=== PATIENT | female | born 1970 | race Caucasian/White ===

== ENCOUNTER 2019-03-05 11:35 | Inpatient (IN) | payer MEDICARE, OTHER ==
[~2019-03-05] VITALS: Ht 157.5 cm; Wt 73.5 kg
--- NOTE | 2019-03-05 12:09 | NUR ---
ED Nurse Note: md mckinnon pt.
[2019-03-05] MEDS ORDERED: Betadine 4oz Bottle TOPIC ONE (12:36)
--- NOTE | 2019-03-05 12:57 | NUR ---
ED Nurse Note: Pt brought in by partner, pt using walker. Pt VSS. Pt is alert and oriented, states allergies to NS, and chloraprep. Pt is set up on monitor.
[2019-03-05 13:01] VITALS: BP 122/81
--- NOTE | 2019-03-05 13:54 | Diagnostic Imaging Report ---
Indication: Dyspnea Comparison: None A single view chest radiograph was obtained. Findings: Cardiomediastinal appearance is within normal limits for age. There is a right chest port in good position with the tip projected over the SVC. The lungs are clear. Pulmonary vascularity is appropriate. The diaphragmatic contour is smooth and costophrenic angles are sharp. No pleural effusions are identified. The bones are unremarkable. Impression: No acute findings
--- NOTE | 2019-03-05 13:55 | NUR ---
ED Nurse Note: lab called spoke with Vanessa, coming for labdraw.
[2019-03-05] MEDS ORDERED: Vancomycin 1 GM in NS 275 ML IVPB ONE (14:00)
[2019-03-05] MEDS ORDERED: Piperacillin/Tazobactam 3.375 GM in NS 110 ML IVPB ONE (14:00)
--- NOTE | 2019-03-05 14:00 | NUR ---
ED Nurse Note: Labs called twice regarding labs needed to be drawn. Called at 1250 and 130. Waiting for lab draw.
--- NOTE | 2019-03-05 14:03 | Emergency Room Report ---
History of Present Illness General Chief Complaint: Abnormal Labs Source: Patient Present Illness HPI Patient presents with a history of having positive blood cultures that were drawn yesterday at [facility]. In the days prior she was having some redness and some pus draining from the site around her Port-A-Cath. She usually has fevers and chills and this has not changed recently. There is also been some pain around the port cath site. The blood cultures were drawn from the Port-A-Cath site yesterday. She is not sure if they did a proper prep yesterday also. She reports generalized pain in 07/02, somewhat localized also to the Port-A-Cath site. 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 She also reports that she has mast cell response to multiple medications. The patient ambulates with a walker. No sore throat, palpitations, nausea, vomiting, diarrhea, dysuria, abdominal pain, shortness of breath, joint pain, rashes, visual changes, dizziness, headache. Allergies: Coded Allergies: AMITRIPTYLINE (Verified Allergy, Unknown, 03/05/19) DEXTROSE (Verified Allergy, Unknown, 03/05/19) DULOXETINE (Verified Allergy, Unknown, 03/05/19) ESCITALOPRAM (Verified Allergy, Unknown, 03/05/19) GABAPENTIN (Verified Allergy, Unknown, 03/05/19) LATEX (Verified Allergy, Unknown, 03/05/19) LEVOFLOXACIN (Verified Allergy, Unknown, 03/05/19) PEANUT (Verified Allergy, Unknown, 03/05/19) PREDNISONE (Verified Allergy, Unknown, 03/05/19) TOPIRAMATE (Verified Allergy, Unknown, 03/05/19) TRAMADOL (Verified Allergy, Unknown, 03/05/19) VENLAFAXINE (Verified Allergy, Unknown, 03/05/19) Uncoded Allergies: CHLORHEXEDIN (Allergy, Unknown, 03/05/19) LACTATED RINGER (Allergy, Unknown, 03/05/19) LEVOFLAXACIN (Allergy, Unknown, 03/05/19) NORMAL SALINE (Allergy, Unknown, 03/05/19) NSAID (Allergy, Unknown, 03/05/19) NUTS (Allergy, Unknown, 03/05/19) PLASTIC TAPE (Allergy, Unknown, 03/05/19) SOY (Allergy, Unknown, 03/05/19) Patient History Past Medical History: see triage record Past Surgical History: hysterectomy Social History: Denies: smoking Social History Narrative 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 [place] Last Menstrual Period: hysterectomy 2018 Now: No Reviewed Nursing Documentation: PMH: Agreed; PSxH: Agreed Nursing Documentation-PMH Past Medical History: No History, Except For Review of Systems All Other Systems: negative except mentioned in HPI Physical Exam Vital Signs Date Time Temp Pulse Resp B/P (MAP) Pulse Ox O2 Delivery O2 Flow Rate FiO2 03/05/19 11:38 98.4 114 17 129/86 (100) 98 Room Air Sp02 EP Interpretation: reviewed, normal General Appearance: well appearing, no apparent distress, GCS 15, non-toxic Head: normocephalic, atraumatic Eyes: bilateral eye normal inspection, bilateral eye PERRL, bilateral eye EOMI ENT: moist mucus membranes Neck: supple Respiratory: lungs clear, normal breath sounds, other - Minimal tenderness at Port-A-Cath site Cardiovascular #1: regular rate, rhythm Cardiovascular #2: 2+ radial (R) Gastrointestinal: normal inspection, normal bowel sounds, non tender, no mass, non-distended Genitourinary: no CVA tenderness Musculoskeletal: back normal, digits/nails normal - No subungual lesions, normal range of motion, other - Ambulates with walker Neurologic: alert, oriented x3, grossly normal Psychiatric: mood/affect normal Skin: warm/dry, other - No erythema at Port-A-Cath site or drainage Medical Decision Making Diagnostic Impression: Primary Impression: Positive blood cultures 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 Differential includes bacteremia, sepsis, contamination, subacute bacterial endocarditis amongst others. Patient needs evaluation with blood cultures repeated here, labs chest x-ray. Due to the clinical history suspicion for either contaminant or bacteremia is high. There will be a low threshold for beginning the patient on antibiotics. EKG was sinus tachycardia. Chest x-ray with Port-A-Cath no infiltrates. White count minimally elevated. CMP, lactate and troponin negative. Vancomycin and Zosyn begun. Patient requested to be treated pretreated with Benadryl. Due to the possibility of line bacteremia, patient admitted to the hospital for continued IV antibiotics and consideration of removal of the Port-A-Cath. Laboratory Tests Test 03/05/19 14:45 03/05/19 15:00 White Blood Count 11.9 K/UL (4.8-10.8) H Red Blood Count 4.29 M/UL (4.20-5.40) Hemoglobin 13.6 G/DL (12.0-16.0) Hematocrit 38.0 % (37.0-47.0) Mean Corpuscular Volume 89 FL (80-99) Mean Corpuscular Hemoglobin 31.6 PG (27.0-31.0) H Mean Corpuscular Hemoglobin Concent 35.7 G/DL (32.0-36.0) Red Cell Distribution Width 10.6 % (11.6-14.8) L Platelet Count 240 K/UL (150-450) Mean Platelet Volume 7.0 FL (6.5-10.1) Neutrophils (%) (Auto) 80.7 % (45.0-75.0) H Lymphocytes (%) (Auto) 13.6 % (20.0-45.0) L Monocytes (%) (Auto) 4.1 % (1.0-10.0) Eosinophils (%) (Auto) 0.8 % (0.0-3.0) Basophils (%) (Auto) 0.8 % (0.0-2.0) Prothrombin Time 10.2 SEC (9.30-11.50) Prothrombin Time INR 1.0 (0.9-1.1) PTT 29 SEC (23-33) Sodium Level 142 MMOL/L (136-145) Potassium Level 3.7 MMOL/L (3.5-5.1) Chloride Level 106 MMOL/L (98-107) Carbon Dioxide Level 24 MMOL/L (21-32) Anion Gap 12 mmol/L (5-15) Blood Urea Nitrogen 8 mg/dL (7-18) Creatinine 0.7 MG/DL (0.55-1.30) Estimate Glomerular Filtration Rate > 60 mL/min (>60) Glucose Level 98 MG/DL (74-106) Lactic Acid Level 0.90 mmol/L (0.4-2.0) Calcium Level 8.4 MG/DL (8.5-10.1) L Magnesium Level 1.8 MG/DL (1.8-2.4) Total Bilirubin 0.4 MG/DL (0.2-1.0) Aspartate Amino Transferase (AST) 14 U/L (15-37) L Alanine Aminotransferase (ALT) 17 U/L (12-78) Alkaline Phosphatase 55 U/L (46-116) Total Creatine Kinase 35 U/L (26-308) Troponin I 0.000 ng/mL (0.000-0.056) Pro-B-Type Natriuretic Peptide 39 pg/mL (0-125) Total Protein 6.8 G/DL (6.4-8.2) Albumin 3.8 G/DL (3.4-5.0) Globulin 3.0 g/dL Albumin/Globulin Ratio 1.3 (1.0-2.7) Lipase 120 U/L (73-393) Urine Color Pale yellow Urine Appearance Clear Urine pH 7 (4.5-8.0) Urine Specific Alpine 1.010 (1.005-1.035) Urine Protein Negative (NEGATIVE) Urine Glucose (UA) Negative (NEGATIVE) Urine Ketones 1+ (NEGATIVE) H Urine Blood Negative (NEGATIVE) Urine Nitrite Negative (NEGATIVE) Urine Bilirubin Negative (NEGATIVE) Urine Urobilinogen Normal MG/DL (0.0-1.0) Urine Leukocyte Esterase Negative (NEGATIVE) EKG Diagnostic Results Rate: tachycardiac Rhythm: NSR ST Segments: no acute changes Rhythm Strip Diag. Results EP Interpretation: yes Rhythm: no PVC's, no ectopy, other - Sinus tachycardia rate 103 left atrial enlargement low voltage QRS Chest X-Ray Diagnostic Results Chest X-Ray Diagnostic Results : Chest X-Ray Ordered: Yes # of Views/Limited/Complete: 1 View Indication: Other EP Interpretation: Yes Interpretation: no consolidation, no effusion, no pneumothorax, other - Port -A-Cath Impression: No acute disease Electronically Signed by: Electronically signed by Negrito Samuel MD Last Vital Signs Date Time Temp Pulse Resp B/P (MAP) Pulse Ox O2 Delivery O2 Flow Rate FiO2 03/05/19 18:20 97.9 70 18 127/77 97 Room Air Status: improved Disposition: ADMITTED INPATIENT Condition: Serious Referrals: Jai Acosta MD (PCP) Negrito Samuel MD Mar 05, 2019 14:03
[2019-03-05] MEDS ORDERED: DiphenhydrAMINE 50mg/ml Inj IVP ONE (14:30)
--- NOTE | 2019-03-05 14:50 | NUR ---
ED Nurse Note: phleb drawing pt.
[2019-03-05 15:25] LABS: BASOPHILS % (AUTO) 0.8 % (0.0-2.0); EOSINOPHILS % (AUTO) 0.8 % (0.0-3.0); HEMOGLOBIN 13.6 G/DL (12.0-16.0); LYMPHOCYTES % (AUTO) 13.6 % (20.0-45.0); MEAN CORPUSCULAR VOLUME 89 FL (80-99); MONOCYTES % (AUTO) 4.1 % (1.0-10.0); NEUTROPHILS % (AUTO) 80.7 % (45.0-75.0); PLATELET COUNT 240 K/UL (150-450); RED BLOOD COUNT 4.29 M/UL (4.20-5.40); RED CELL DISTRIBUTION WIDTH 10.6 % (11.6-14.8); WHITE BLOOD COUNT 11.9 K/UL (4.8-10.8)
[2019-03-05 15:27] LABS: APPEARANCE,URINE CLEAR; BILIRUBIN, URINE NEGATIVE (NEGATIVE); COLOR,URINE PALE YELLOW; GLUCOSE, URINE (UA) NEGATIVE (NEGATIVE); KETONES,URINE 1+ (NEGATIVE); LEUKOCYTE ESTERASE ,URINE NEGATIVE (NEGATIVE); NITRITE,URINE NEGATIVE (NEGATIVE); PH,URINE 7 (4.5-8.0); PROTEIN,URINE NEGATIVE (NEGATIVE); UROBILINOGEN,URINE NORMAL MG/DL (0.0-1.0)
[2019-03-05 15:49] LABS: ANION GAP 12 mmol/L (5-15); BLOOD UREA NITROGEN 8 mg/dL (7-18); CALCIUM 8.4 MG/DL (8.5-10.1); CARBON DIOXIDE 24 MMOL/L (21-32); CHLORIDE 106 MMOL/L (98-107); CREATININE 0.7 MG/DL (0.55-1.30); POTASSIUM 3.7 MMOL/L (3.5-5.1); SODIUM 142 MMOL/L (136-145)
[2019-03-05 15:55] LABS: ALANINE AMINOTRANSFERASE 17 U/L (12-78); ALBUMIN 3.8 G/DL (3.4-5.0); ALBUMIN/GLOBULIN RATIO 1.3 (1.0-2.7); ALKALINE PHOSPHATASE 55 U/L (46-116); ASPARTATE AMINO TRANSFERASE 14 U/L (15-37); BILIRUBIN,TOTAL 0.4 MG/DL (0.2-1.0); CREATINE KINASE 35 U/L (26-308)
--- NOTE | 2019-03-05 17:25 | NUR ---
NURSE NOTES: Received telephone report from Ladi VORA in ED. Patient not yet on the unit.
[2019-03-05 17:36] VITALS: BP 120/85
[2019-03-05 18:10] VITALS: BP 115/77
--- NOTE | 2019-03-05 18:30 | NUR ---
NURSE NOTES: Patient arrived to unit at 1810 via bed. No acute distress noted, reporting no pain at this time, but reporting mild nausea, no emesis noted. VS assessed and stable. Patient arrived to unit with infiltrated right hand IV, removed IV and started new IV in left forearm 22g. Noted patient's multiple allergies, allergy wristband placed. Sign placed above bed to not use any alcohol wipes or chlorhexadine on patient's skin (patient states she has skin irritation from these). Needs met at this time. Home medication list collected (will enter). Belongings checked. Will endorse admission to shift coordinator nurse. Side rails upx2, bed low and locked, call light within reach.
[2019-03-05] MEDS ORDERED: NORCO 5-325 TA1 EACH ORAL (19:47)
[2019-03-05] MEDS ORDERED: NASAL ALLERGY S13 ML NS (19:47)
[2019-03-05] MEDS ORDERED: PHENERGAN25 M1 ORAL (19:47)
[2019-03-05] MEDS ORDERED: ALBUTEROL2.5 MG/3 M INH (19:47)
[2019-03-05] MEDS ORDERED: ZYRTEC10 MG ORAL (19:47)
[2019-03-05] MEDS ORDERED: DIAZEPAM10 MG ORAL (19:47)
[2019-03-05] MEDS ORDERED: HYDROXYZINE HCL25 M1 PO (19:47)
[2019-03-05 20:00] VITALS: BP 140/85
--- NOTE | 2019-03-05 20:00 | NUR ---
HAND-OFF: Report given to Giselle VORA. Endorsed admission. Dr. Acosta's exchange called for admission orders, awaiting call back.
--- NOTE | 2019-03-05 20:01 | NUR ---
NURSE NOTES: Received report & pt from DIONY Villegas. Pt lying in bed, a&ox4, in room air. No s/s of acute distress & no c/o pain at this time. IV site intact & S/L'd. Bed in lowest position, call light within reach. Will continue to monitor.
--- NOTE | 2019-03-05 21:00 | NUR ---
NURSE NOTES: Dr. Acosta called back with admisison orders. Noted & carried out.
[2019-03-05] MEDS ORDERED: HYDROcodone/Acetamin 5/325 tab ORAL PRN (21:45)
[2019-03-05] MEDS ORDERED: HydrOXYzine tab 25mg tab ORAL PRN (21:45)
[2019-03-05] MEDS ORDERED: Albuterol ud Inhalation HHN PRN (21:45)
[2019-03-05] MEDS ORDERED: BENADRYL25 M3 PO (22:50)
[2019-03-05] MEDS: DiphenhydrAMINE 50mg/ml Inj IVP PRN (23:13)
[2019-03-05] MEDS: Promethazine 25mg tab ORAL PRN (23:13)
[2019-03-05] MEDS: Piperacillin/Tazobactam 3.375 GM in NS 110 ML IVPB SCH (23:13)
[2019-03-06] VITALS: BP 117/77
[2019-03-06 04:00] VITALS: BP 110/70
[2019-03-06] MEDS: oxyCODONE HCL/Acetaminophen 5/325mg ORAL PRN ×2 (04:53→20:53)
[2019-03-06] MEDS: Vancomycin 1gm/D5W 275ml IVPB SCH ×4 (05:29→16:51)
[2019-03-06] MEDS: DiphenhydrAMINE 50mg/ml Inj IVP PRN ×2 (05:30→18:32)
[2019-03-06] MEDS: Piperacillin/Tazobactam 3.375 GM in NS 110 ML IVPB SCH (06:56)
--- NOTE | 2019-03-06 07:34 | NUR ---
HAND-OFF: Report given to DIONY Salinas. Pt instable condition.
--- NOTE | 2019-03-06 07:39 | NUR ---
NURSE NOTES: AWAKE/ALERT. PAIN SCALE 5/10. C/O ANXIETY. GIVEN VALIUM 10MG PO ORDERED. IN NO APPARENT DISTRESS.
[2019-03-06 08:00] VITALS: BP 122/79
[2019-03-06] MEDS ORDERED: NS 500ML ONE (09:28)
[2019-03-06] MEDS ORDERED: Tubing IV Secondary IV ONE (09:29)
[2019-03-06] MEDS ORDERED: D5W 275ml ONE (09:29)
[2019-03-06 12:00] VITALS: BP 108/75
[2019-03-06] MEDS: Promethazine 25mg tab ORAL PRN (12:32)
[2019-03-06 16:00] VITALS: BP 112/77
--- NOTE | 2019-03-06 16:15 | Consultation ---
DATE OF CONSULTATION: 03/06/2019 INFECTIOUS DISEASE CONSULTATION CONSULTING PHYSICIAN: Janae Urias M.D. REFERRING PHYSICIAN: Jai Acosta M.D. REASON FOR CONSULTATION: Bacteremia. HISTORY OF PRESENTING ILLNESS: This is a 48-year-old lady with history of Kenyon-Danlos syndrome, mast cell activation syndrome, who comes in with fever, chills along with nausea vomiting and with some drainage and pus coming from the Port-A-Cath site and Infectious Diseases consultation has been obtained for bacteremia. PAST MEDICAL HISTORY: 1. History of Kenyon-Danlos syndrome. 2. Mast cell activation. MEDICATIONS: As an inpatient, she is on IV vancomycin, cetirizine, Valium, Zosyn, Benadryl, Percocet, Tylenol, albuterol sulfate, Atarax, Phenergan. ALLERGIES: 1. Amitriptyline. 2. Chlorhexidine. 3. Dextrose. 4. Duloxetine. 5. Escitalopram. 6. Gabapentin. 7. Latex. 8. Levaquin. 9. Peanut. 10. Prednisone. 11. Topiramate. 12. Tramadol. 13. Venlafaxine. 14. Chlorhexidine. 15. Lactated Ringer's. 16. Normal saline. 17. NSAID. 18. Nuts. 19. Plastic tape. 20. . SOCIAL HISTORY: She does not smoke. She does not drink alcohol. She uses cannabis. FAMILY HISTORY: Positive for prostate cancer in one of for grandfather and bladder cancer in another grandfather. REVIEW OF SYSTEMS: RESPIRATORY: She has fever and chills. No cough. No shortness of breath or chest pain. CARDIAC: No chest pain. No palpitations. No dizziness. No syncope. GASTROINTESTINAL: She had nausea and vomiting. No abdominal pain or diarrhea. MUSCULOSKELETAL: She complains of pain. PHYSICAL EXAMINATION: VITAL SIGNS: Temperature of 98.2, T-max of 98.4, pulse of 85, respiratory rate of 18, blood pressure 122/79, and O2 saturation of 97%. HEENT: Pupils are equally reactive to light and accommodation. Mouth appears clean without thrush. NECK: Supple. No adenopathy. No JVD. CARDIOVASCULAR: Regular rate and rhythm. No murmurs. LUNGS: Clear to auscultation bilaterally. No crackles. No wheezes. Right chest Port-A-Cath site with erythema noted. No drainage. ABDOMEN: Soft, nontender. No organomegaly. EXTREMITIES: No cyanosis, no clubbing, no edema. LABORATORY AND DIAGNOSTIC DATA: White count 11.9, hemoglobin 13.6, hematocrit 38, MCV 89, platelet count of 240,000 with neutrophils of 80%. Sodium 142, potassium 3.7, chloride 106, bicarbonate 24, BUN 8, creatinine 0.7, glucose 98, calcium 8.4, total bilirubin 0.4. AST 14, ALT 17, alkaline phosphatase 55. CK of 35, troponin 0. Beta-natriuretic peptide 39, total protein 6.8, albumin 3.8, lipase of 120. UA showing nitrite negative, LE negative. Chest x-ray showing no acute findings. ASSESSMENT: 1. This is a 48-year-old lady with history of Kenyon-Danlos syndrome and mast cell activation who comes in with fevers, chills, nausea, vomiting with drainage from the Port-A-Cath site and has bacteremia with coagulase-negative Staph from [facility]. 2. Kenyon-Danlos syndrome. 3. Mast cell activation. PLAN: 1. Discontinue Zosyn. 2. Continue IV vancomycin. 3. We will follow up the patient clinically. I would like to thank, Dr. Acosta, for this consultation. Janae Urias M.D. DR: CAROL JOB#: [id number] CC: Jose Acosta M.D.; Fax#: [phone]
--- NOTE | 2019-03-06 16:15 | Consultation ---
DATE OF CONSULTATION: 03/06/2019 INFECTIOUS DISEASE CONSULTATION NOTE: INCOMPLETE DICTATION CONSULTING PHYSICIAN: Janae Urias M.D. REFERRING PHYSICIAN: Jai Acosta M.D. REASON FOR CONSULTATION: Bacteremia. HISTORY OF PRESENT ILLNESS: This is a 48-year-old lady with history of Kenyon-Danlos syndrome, mast cell activation who comes in with some pus and drainage from the right Port-A-Cath site. She has been having fever and chills as well as pain around the Port-A-Cath site. She had blood cultures drawn at [facility] that was positive and an Infectious Disease consultation has been obtained for antibiotics. PAST MEDICAL HISTORY: 1. History of Kenyon-Danlos syndrome. 2. History of mast cell activation. 3. Positive gastroparesis. 4. Hysterectomy. SOCIAL HISTORY: She does not smoke. She does not drink alcohol. She uses cannabis. FAMILY HISTORY: One of her grandfathers had prostate cancer. The other grandfather had bladder cancer. REVIEW OF SYSTEMS: RESPIRATORY: She has fever and chills. No cough. No shortness of breath or chest pain. CARDIAC: No chest pain. No palpitation. No dizziness. No syncope. GASTROINTESTINAL: She has nausea and vomiting. No abdominal pain or diarrhea. MUSCULOSKELETAL: She complains of pain. MEDICATIONS: As an inpatient, she is on . INCOMPLETE DICTATION Janae Urias M.D. DR: JOLANTA JOB#: [id number] CC:
--- NOTE | 2019-03-06 18:30 | Progress Note ---
DATE: 03/06/2019 SUBJECTIVE: This is a 48-year-old female, came to emergency room for positive bacteria and infected PermCath. The patient is currently in the bed, feeling better. OBJECTIVE: VITAL SIGNS: Blood pressure is 122/79, pulse 85. No fever. CHEST: Bilaterally clear. CARDIOVASCULAR: Regular rhythm. ABDOMEN: Soft. EXTREMITIES: CCE. NEUROLOGICAL: The patient has generalized weakness. LABORATORY DATA: White counts are 12,000, hemoglobin 14, hematocrit 45, and platelets are 240,000. Chemistry panel, BUN 8, creatinine 0.7. Troponins are negative. Urine 1+ ketones and microbiology reports are pending. ASSESSMENT: 1. Bacteremia. 2. Infected possible PermCath. PLAN: ID is on consult. Continue antibiotics. The patient also had a chest x-ray done. Chest x-ray showed no acute findings. We will currently continue antibiotics. ID is on consult. Continue Zosyn and vancomycin. Continue IV fluid. I discussed with charge nurse for dietary consult for the patient has some food allergy. Jose Acosta M.D. DR: MELISSA JOB#: [id number] CC:
--- NOTE | 2019-03-06 19:00 | NUR ---
NURSE NOTES: PT RESTING. IN NO APPARENT DISTRESS.
--- NOTE | 2019-03-06 19:29 | NUR ---
HAND-OFF: Report given to Samira TYLER RN.
[2019-03-06 20:00] VITALS: BP 105/66
--- NOTE | 2019-03-06 20:09 | NUR ---
NURSE NOTES: Received report from Rn Tyshawn, patient is A/O x4 in stable condition on room air ,with IV on R wrist , intact with iv running , patient c/o of pain of 5/10 but stated she will call if pain medication is needed. Bed in low position and call light with in reach tayo continue paln of care
[2019-03-07] VITALS: BP 109/67
[2019-03-07 04:00] VITALS: BP_SYST 108; BP_SYST 109; BP_DIAS 62; BP_DIAS 67
--- NOTE | 2019-03-07 05:47 | NUR ---
NURSE NOTES: Spoke with lab for vanco trough result. Per lab, result not out yet & they are still running it
[2019-03-07] MEDS ORDERED: Vancomycin 1gm/D5W 275ml IVPB SCH ×4 (06:30→07:00)
[2019-03-07] MEDS: DiphenhydrAMINE 50mg/ml Inj IVP PRN ×2 (06:50→17:07)
--- NOTE | 2019-03-07 07:15 | NUR ---
HAND-OFF: Report given to DIONY Salinas. Pt in stable condition.
--- NOTE | 2019-03-07 07:21 | NUR ---
NURSE NOTES: AWAKE/ALERT. PAIN SCALE 5/10. IN NO ACUTE DISTRESS.
[2019-03-07 08:00] VITALS: BP 115/70
[2019-03-07] MEDS: Vancomycin 1 GM in NS 275 ML IVPB SCH ×2 (08:23→17:13)
--- NOTE | 2019-03-07 10:13 | Infectious Diseases Prog Note ---
Assessment/Plan Assessment/Plan antibiotics : vancomycin iv A 1. 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 fever improving P 1. continue iv vancomycin 7 more days ( ordered with home health ) 2. cbc, bmp, vancomycin level q weekly 3. d/w Dr Acosta Subjective Constitutional: Denies: fever, chills Respiratory: Denies: shortness of breath, dry cough Gastrointestinal/Abdominal: Reports: nausea; Denies: vomiting, diarrhea Neurologic: Reports: headache Allergies: Coded Allergies: AMITRIPTYLINE (Verified Allergy, Unknown, 03/05/19) DEXTROSE (Verified Allergy, Unknown, 03/05/19) DULOXETINE (Verified Allergy, Unknown, 03/05/19) ESCITALOPRAM (Verified Allergy, Unknown, 03/05/19) GABAPENTIN (Verified Allergy, Unknown, 03/05/19) LATEX (Verified Allergy, Unknown, 03/05/19) LEVOFLOXACIN (Verified Allergy, Unknown, 03/05/19) PEANUT (Verified Allergy, Unknown, 03/05/19) PREDNISONE (Verified Allergy, Unknown, 03/05/19) TOPIRAMATE (Verified Allergy, Unknown, 03/05/19) TRAMADOL (Verified Allergy, Unknown, 03/05/19) VENLAFAXINE (Verified Allergy, Unknown, 03/05/19) Uncoded Allergies: CHLORHEXEDIN (Allergy, Unknown, 03/05/19) LACTATED RINGER (Allergy, Unknown, 03/05/19) LEVOFLAXACIN (Allergy, Unknown, 03/05/19) NORMAL SALINE (Allergy, Unknown, 03/05/19) NSAID (Allergy, Unknown, 03/05/19) NUTS (Allergy, Unknown, 03/05/19) PLASTIC TAPE (Allergy, Unknown, 03/05/19) SOY (Allergy, Unknown, 03/05/19) Objective Vital Signs Last 24 Hour Vital Signs Date Time Temp Pulse Resp B/P (MAP) Pulse Ox O2 Delivery O2 Flow Rate FiO2 03/07/19 08:32 Room Air 03/07/19 08:00 98.3 75 18 115/70 (85) 99 03/07/19 04:00 97.7 77 19 108/67 (81) 99 03/07/19 00:00 97.8 83 18 109/67 (81) 96 03/06/19 21:00 Room Air 03/06/19 20:38 74 18 98 Room Air 21 03/06/19 20:00 98.1 86 18 105/66 (79) 97 03/06/19 16:00 98.5 86 18 112/77 (89) 98 03/06/19 12:00 98.1 84 16 108/75 (86) 99 Height (Feet): 5 Height (Inches): 2.00 Weight (Pounds): 162 Respiratory/Chest: lungs clear, other - right chest catheter site mild erythema Cardiovascular: normal rate, regular rhythm, no gallop/murmur Abdomen: soft, non tender Extremities: no edema Microbiology Date/Time Source Procedure Growth Status 03/05/19 15:00 Blood Blood Culture - Preliminary NO GROWTH AFTER 24 HOURS Resulted 03/05/19 14:45 Blood Blood Culture - Preliminary NO GROWTH AFTER 24 HOURS Resulted Laboratory Tests Test 03/07/19 04:13 Vancomycin Level Trough 9.9 ug/mL (5.0-12.0) Current Medications Medications (Trade) Dose Ordered Sig/Kelli Route PRN Reason Start Time Stop Time Status Last Admin Dose Admin Acetaminophen (Tylenol) 650 mg Q4H PRN ORAL Mild Pain/Temp > 100.5 03/05/19 21:45 04/04/19 21:44 Albuterol Sulfate (Proventil) 2.5 mg Q4H PRN HHN Shortness of Breath 03/05/19 21:45 03/10/19 21:44 Cetirizine HCl (ZyrTEC) 10 mg QHS ORAL 03/05/19 23:30 04/05/19 20:59 03/06/19 20:52 Diazepam (Valium) 10 mg Q6H PRN ORAL Anxiety 03/05/19 23:15 03/12/19 23:14 03/07/19 05:06 Diphenhydramine HCl (Benadryl) 25 mg Q4H PRN IVP Itching 03/05/19 23:00 04/04/19 22:59 03/07/19 06:50 Hydroxyzine HCl (Atarax) 25 mg Q6H PRN ORAL Itching/Pruritis 03/05/19 21:45 04/04/19 21:44 Non-Formulary Medication (Non-Formulary Med) 1 ea BID ORAL 03/06/19 09:00 04/05/19 08:59 UNV Oxycodone/ Acetaminophen (Percocet 5-325) 1 tab Q4H PRN ORAL Pain 4-10 03/05/19 22:30 03/12/19 22:29 03/06/19 20:53 Promethazine HCl (Phenergan) 25 mg Q6H PRN ORAL Nausea & Vomiting 03/05/19 21:45 04/04/19 21:44 03/06/19 12:32 Sodium Chloride 1,000 ml @ 100 mls/hr Q10H IV 03/05/19 23:00 03/07/19 11:00 03/07/19 05:07 Vancomycin HCl (Vanco rx to dose) 1 ea DAILY PRN MISC Per rx protocol 03/05/19 21:45 04/04/19 21:44 Vancomycin HCl 1 gm/Sodium Chloride 275 ml @ 183.708 mls/hr Q8H IVPB 03/07/19 09:00 03/12/19 08:59 03/07/19 08:23 Janae Urias MD Mar 07, 2019 10:13
[2019-03-07] MEDS: Promethazine 25mg tab ORAL PRN (11:53)
[2019-03-07 12:00] VITALS: BP 127/81
--- NOTE | 2019-03-07 12:52 | NUR ---
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 98.1 HR 93 RR 18 B/P 122/81 WBC 11.9 CXR= NO ACUTE PROCESS IS: IV BOLUS NS X 2 LITERS ADMITTED TO MED/SURG MED/SURG STATUS DCP RETURN HOME
--- NOTE | 2019-03-07 14:53 | NUR ---
RD ASSESSMENT & RECOMMENDATIONS SEE CARE ACTIVITY FOR COMPLETE ASSESSMENT DAILY ESTIMATED NEEDS: Needs based on Infection/ 54.5kg abw 25-30 kcals/kg 3856-2471 total kcals 1-1.2 g protein/kg 54-65 g total protein 25-30 mL/kg 0530-1983 total fluid mLs NUTRITION DIAGNOSIS: Altered GI function R/T clinical condition as evidenced by pt admitted w/ c/o N/V, now improved. CURRENT DIET:REGULAR PO DIET RECOMMENDATIONS: REGULAR diet as tolerated ADDITIONAL RECOMMENDATIONS: * Pt reports allergic to all corn/ corn products/ corn derivatives * Obtained food preferences/ foods she's not allowed to have due to sensitivity -> relayed msg to kitchen. * Monitor PO tolerance and acceptance * Calibrated bedscale wt on 03/07 -> 150lbs (vs EMR wt of 162lbs)
--- NOTE | 2019-03-07 15:15 | Progress Note ---
DATE: 03/07/2019 SUBJECTIVE: This is a young 48-year-old female, currently in bed, comfortable, feeling better. No fever. No chills. Her blood cultures are so far negative here, but [facility] blood cultures are growing coag-negative staph. OBJECTIVE: VITAL SIGNS: Blood pressure 115/70, pulse 75, respirations 18, no fever. CHEST: Bilaterally clear. CARDIOVASCULAR: Regular rhythm. ABDOMEN: Soft. EXTREMITIES: CCE. ASSESSMENT: 1. Bacteremia. 2. Possible infected PermCath on the right chest. 3. Autoimmune disease and autonomic nervous system problem. 4. Generalized weakness. PLAN: 1. We will order PT and OT. 2. Discuss with ID. 3. Continue IV antibiotic. 4. Continue wound care and discuss with ID in detail. Jose Acosta M.D. DR: MESFIN JOB#: [id number] CC:
[2019-03-07 16:00] VITALS: BP 108/70
--- NOTE | 2019-03-07 17:39 | NUR ---
DIPLOMA DENTAL ASSISTANT NOTES HOME HEALTH AND IV ATB SET UP. WANDA DE DIOS WILL CALL IN AM TO VERIFY IF PT DISCHARGE. WANDA DE DIOS TO DELIVER ATB WHEN PT DISCHARGE. WILL FOLLOW UP IN AM WITH PT'S STATUS.
--- NOTE | 2019-03-07 19:00 | NUR ---
NURSE NOTES: RESTING. IN NO ACUTE CHANGES.
--- NOTE | 2019-03-07 19:18 | NUR ---
HAND-OFF: Report given to Samira TYLER RN.
[2019-03-07 20:00] VITALS: BP 121/68
--- NOTE | 2019-03-07 20:00 | NUR ---
NURSE NOTES: Recieved patient in bed awake A/Ox4, in stable condition IV fluids on R wrist patent and asymptomatic, complain of pain level of 5/10 of the back, patient stated she will communicate when she is ready for pain meds. Bed locked in low position call light with in reach will continue to monitor
[2019-03-07] MEDS: oxyCODONE HCL/Acetaminophen 5/325mg ORAL PRN (21:12)
[2019-03-08] VITALS: BP 92/54
[2019-03-08] MEDS: DiphenhydrAMINE 50mg/ml Inj IVP PRN ×3 (01:05→19:54)
[2019-03-08] MEDS: Vancomycin 1 GM in NS 275 ML IVPB SCH ×2 (01:05→09:01)
[2019-03-08 04:00] VITALS: BP 100/61
--- NOTE | 2019-03-08 07:30 | NUR ---
HAND-OFF: Report given to DIONY Machado. Rounds done.
--- NOTE | 2019-03-08 07:45 | NUR ---
NURSE NOTES: Received report from Giselle VORA, pt a/a/o x4 seating in bed with no signs of distress or other issues at this time. IV on the right wrist gauge#22 heplock. call light within reach, bed in lowest position. side rales up x2. I will f/u as needed.
[2019-03-08 08:00] VITALS: BP 121/81
--- NOTE | 2019-03-08 08:52 | NUR ---
HAND-OFF: Report given to Nahed VORA. pt in stable condition.
--- NOTE | 2019-03-08 08:56 | NUR ---
NURSE NOTES: Patient is in bed awake and able to verbalize needs. Stable. Denies pain or SOB. Patient encouraged to use call light for assistance, verbalized understanding. Patient is in bed in locked and lowest position with call light within reach. Will continue to monitor.
--- NOTE | 2019-03-08 11:22 | Infectious Diseases Prog Note ---
Assessment/Plan Assessment/Plan A 1. 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 fever resolved 5. secondary arthritis P 1. continue iv vancomycin 6 more days ( ordered with home health ) 2. cbc, bmp, vancomycin level q weekly Subjective ROS Limited/Unobtainable: No Constitutional: Reports: no symptoms Respiratory: Reports: no symptoms Gastrointestinal/Abdominal: Reports: no symptoms Genitourinary: Reports: no symptoms Allergies: Coded Allergies: AMITRIPTYLINE (Verified Allergy, Unknown, 03/05/19) DEXTROSE (Verified Allergy, Unknown, 03/05/19) DULOXETINE (Verified Allergy, Unknown, 03/05/19) ESCITALOPRAM (Verified Allergy, Unknown, 03/05/19) GABAPENTIN (Verified Allergy, Unknown, 03/05/19) LATEX (Verified Allergy, Unknown, 03/05/19) LEVOFLOXACIN (Verified Allergy, Unknown, 03/05/19) PEANUT (Verified Allergy, Unknown, 03/05/19) PREDNISONE (Verified Allergy, Unknown, 03/05/19) TOPIRAMATE (Verified Allergy, Unknown, 03/05/19) TRAMADOL (Verified Allergy, Unknown, 03/05/19) VENLAFAXINE (Verified Allergy, Unknown, 03/05/19) Uncoded Allergies: CHLORHEXEDIN (Allergy, Unknown, 03/05/19) LACTATED RINGER (Allergy, Unknown, 03/05/19) LEVOFLAXACIN (Allergy, Unknown, 03/05/19) NORMAL SALINE (Allergy, Unknown, 03/05/19) NSAID (Allergy, Unknown, 03/05/19) NUTS (Allergy, Unknown, 03/05/19) PLASTIC TAPE (Allergy, Unknown, 03/05/19) SOY (Allergy, Unknown, 03/05/19) Objective Vital Signs Last 24 Hour Vital Signs Date Time Temp Pulse Resp B/P (MAP) Pulse Ox O2 Delivery O2 Flow Rate FiO2 03/08/19 09:00 Room Air 03/08/19 08:00 98.3 99 18 121/81 (94) 98 03/08/19 04:00 97.4 74 17 100/61 (74) 97 03/08/19 00:00 98.8 83 18 92/54 (67) 94 03/07/19 21:00 Room Air 03/07/19 20:00 97.9 85 17 121/68 (85) 97 03/07/19 16:00 98.0 78 18 108/70 (83) 95 03/07/19 12:00 97.8 100 20 127/81 (96) 97 Height (Feet): 5 Height (Inches): 2.00 Weight (Pounds): 162 General Appearance: no acute distress HEENT: mucous membranes moist Respiratory/Chest: lungs clear Cardiovascular: normal rate, other - Portocath in R side of chest Abdomen: soft, non tender Extremities: no edema Skin: other - keloids Neurologic/Psychiatric: alert, oriented x 3, responsive Microbiology Date/Time Source Procedure Growth Status 03/05/19 15:00 Blood Blood Culture - Preliminary NO GROWTH AFTER 48 HOURS Resulted 03/05/19 14:45 Blood Blood Culture - Preliminary NO GROWTH AFTER 48 HOURS Resulted Laboratory Tests Test 03/08/19 06:10 Vancomycin Level Trough 22.1 ug/mL (5.0-12.0) H Current Medications Medications (Trade) Dose Ordered Sig/Kelli Route PRN Reason Start Time Stop Time Status Last Admin Dose Admin Acetaminophen (Tylenol) 650 mg Q4H PRN ORAL Mild Pain/Temp > 100.5 03/05/19 21:45 04/04/19 21:44 Albuterol Sulfate (Proventil) 2.5 mg Q4H PRN HHN Shortness of Breath 03/05/19 21:45 03/10/19 21:44 Cetirizine HCl (ZyrTEC) 10 mg QHS ORAL 03/05/19 23:30 04/05/19 20:59 03/07/19 21:11 Diazepam (Valium) 10 mg Q6H PRN ORAL Anxiety 03/05/19 23:15 03/12/19 23:14 03/08/19 08:35 Diphenhydramine HCl (Benadryl) 25 mg Q4H PRN IVP Itching 03/05/19 23:00 04/04/19 22:59 03/08/19 09:01 Hydroxyzine HCl (Atarax) 25 mg Q6H PRN ORAL Itching/Pruritis 03/05/19 21:45 04/04/19 21:44 Non-Formulary Medication (Non-Formulary Med) 1 ea BID ORAL 03/06/19 09:00 04/05/19 08:59 UNV Oxycodone/ Acetaminophen (Percocet 5-325) 1 tab Q4H PRN ORAL Pain 4-10 03/05/19 22:30 03/12/19 22:29 03/07/19 21:12 Promethazine HCl (Phenergan) 25 mg Q6H PRN ORAL Nausea & Vomiting 03/05/19 21:45 04/04/19 21:44 03/07/19 11:53 Vancomycin HCl (Vanco rx to dose) 1 ea DAILY PRN MISC Per rx protocol 03/05/19 21:45 04/04/19 21:44 Vancomycin HCl 1 gm/Sodium Chloride 275 ml @ 183.708 mls/hr Q8H IVPB 03/07/19 09:00 03/12/19 08:59 03/08/19 09:01 Kishore Humphrey MD Mar 08, 2019 11:22
[2019-03-08 12:00] VITALS: BP 121/90
[2019-03-08 16:00] VITALS: BP 119/82
[2019-03-08] MEDS ORDERED: Tubing IV Secondary IV ONE (16:27)
[2019-03-08] MEDS ORDERED: Vancomycin 1 GM in NS 275 ML IVPB SCH (18:00)
--- NOTE | 2019-03-08 18:00 | NUR ---
NURSE NOTES: Patient is anxious and is asking for benadryl for home. Spoke to Dr. Acosta regarding patient's concerns. Patient made aware of RN's conversation with Dr. Acosta. Patient will follow up with pharmacy.
--- NOTE | 2019-03-08 19:30 | NUR ---
HAND-OFF: Report given to Erica VORA. Patient is stable.
--- NOTE | 2019-03-08 19:35 | NUR ---
NURSE NOTES: Patient is in bed awake and alert x4. On room air with no signs of SOB. IV is intact and patent. Bed is locked and in lowest position with call light within reach. Will continue to monitor.
[2019-03-08 20:00] VITALS: BP 122/80
[2019-03-08] MEDS ORDERED: Vancomycin 1.25gm/NS Premix q24h IVPB SCH (20:00)
--- NOTE | 2019-03-08 22:11 | NUR ---
NURSE NOTES: Patient discharged to home via taxi at 2200. Taxi voucher with patient. Patient ambulates. ANOx4. Stable condition. IV access and wristbands removed. Checked patient's belongings with the patient and all items remain with the patient.
--- NOTE | 2019-03-09 11:10 | Discharge Summary ---
Discharge Summary Discharge Summary _ DATE OF ADMISSION: 03/05/14 DATE OF DISCHARGE: 03/08/2019 DISCHARGED BY: Dr. Acosta REASON FOR ADMISSION: 48 years old female with history of Kenyon-Danlos syndrome and mast cell activation , comes with fever, chills , nausea, vomiting. Patient apparently had positive blood culture drawn the day prior to presentation to [place] [facility] at the [facility]. Blood cultures were drawn from the port site. Patient was note sure if proper techniques were employed to draw blood. Upon evaluation patient was afebrile, tachycardic Laboratory work-up revealed mild leukocytosis WBC 11.9, stable hemoglobin and hematocrit. Lactic acid 0.9. Stable electrolytes and renal parameters. Stable LFT. Troponin negative. pro BNP 39. EKG revealed sinus tachycardia, no acute ischemic changes. Urinalysis revealed evidence of UTI. Chest x-ray revealed no acute cardiopulmonary pathology. Right chest Port-A- Cath was in good position. Patient started on broad-spectrum antibiotic and admitted to the hospital . CONSULTANTS: ID specialist Dr. Urias HOSPITAL COURSE: Patient admitted to medical surgical floor . Patient initially was on Zosyn abd Vancomycin. Blood culture from the Port-A-Cath site drawn at [facility] showed Staph coag negative . Zosyn was discontinued, and Vancomycin was continued. Blood culture on 03/05 in the emergency room were negative. Fevers resolved. ID specialist recommended continue vancomycin at home to complete the course. Home health was arranged . Pain management was addressed. Supportive care provided. Patient clinically stabilized and was ready for discharge home with home health services to complete IV antibiotic. FINAL DIAGNOSES: Sepsis Staph coagulase negative. Kenyon-Danlos syndrome Mast cell activation Secondary arthritis DISCHARGE MEDICATIONS: See Medication Reconciliation list. DISCHARGE INSTRUCTIONS: Patient was discharged home with home health services. Follow up with primary care provider in one week. I have been assigned to dictate discharge summary for this account. I was not involved in the patient's management. Eunice Alicia NP Mar 09, 2019 11:10
== END 2019-03-08 22:00 | disposition home or self-care (01) | DRG 314 ==
LOC: EMR 12:30 → 3E 13:14 → EDBEDREQ 13:34
DX: T80.211A Bloodstream infection due to central venous catheter, initial encounter (principal); A41.1 Sepsis due to other specified staphylococcus; Q79.60 Ehlers-Danlos syndrome, unspecified; D89.40 Mast cell activation, unspecified; Z88.8 Allergy status to other drugs, medicaments and biological substances; Z88.6 Allergy status to analgesic agent; Z88.1 Allergy status to other antibiotic agents; Z91.040 Latex allergy status; M19.93 Secondary osteoarthritis, unspecified site
CPT/HCPCS: 36415; 71045; 80053; 80202; 81003; 82550; 83605; 83690; 83735; 83880; 84484; 85025; 85610; 85730; 87040; 93005; 94664; 96361; 96365; 96368; 96375; 99285; A4246; J7030